=== PATIENT | female | born 1995 | race African-American/Black ===

== ENCOUNTER 2025-03-20 04:09 | Emergency (ER) | payer MEDICAID ==
[~2025-03-20] VITALS: Ht 175.3 cm; Wt 79.9 kg
[~2025-03-20 04:09] MED LIST: PREN-96 PO
[2025-03-20] MEDS ORDERED: ACET500T58 PO (05:03)
--- NOTE | 2025-03-20 05:04 | ED.PDOC ---
History of Present Illness HPI Comments 29-year-old female presents to ER with complaints of body aches x1 day. Patient reports that she has been experiencing intermittent body aches, sinus congestion and intermittent frontal headache x1 day. She rates her current pain a 9/10. States that she last took Tylenol for symptoms yesterday with slight relief. Patient also reports that she currently is 32 weeks , and has been following up with her OBGYN as directed, denying any known complications with current and presents to ER ambulatory on arrival, with steady gait in no distress. 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 History Family History Family History: Unknown Social History Smoker: Non-Smoker Alcohol: Denies ETOH Use Drugs: Denies Drug Use Lives In: Home Constitutional: See HPI EENTM: See HPI Respiratory: No Symptoms Reported Cardiovascular: No Symptoms Reported Gastrointestinal: No Symptoms Reported Genitourinary: See HPI Neurological: See HPI Musculoskeletal: No Symptoms Reported Integumentary: No Symptoms Reported Allergic/Immunocompromised: others (DENIES) Hematologic/Lymphatic: No Symptoms Reported Endocrine: No Symptoms Reported Psychiatric: No symptoms Reported Physical Exam General Appearance: No Apparent Distress, Normal HEENT: Normal ENT Inspection, PERRL/EOMI, Pharynx Normal, TMs Normal Neck: Full Range of Motion, Non-Tender, Normal Respiratory: Chest Non-Tender, Lungs Clear, No Accessory Muscle Use, No Respiratory Distress, Normal Breath Sounds Cardiovascular: No Murmur, No Gallop, Regular Rate/Rhythm Breast Exam: Deferred Gastrointestinal: Non Tender (NO TTP TO ABDOMEN/PELVIC REGION NOTED), No Pulsatile Mass, Soft Genitalia: Deferred Pelvic: Deferred Rectal: Deferred Extremities: Normal capillary refill, Normal range of motion Neurologic: Alert, inspector golf ball II-XII nml as Tested, No Motor Deficits, Normal Affect, Normal Mood, No Sensory Deficits Cerebellar Function: Normal Reflexes: Normal Skin: Dry, Normal Color, Warm Lymphatic: No Adenopathy Was a procedure done? Was a procedure done?: No Sedation Sedation?: No Fever Differential Dx Differential Diagnosis: Pneumonia, Sepsis, Other (COVID-19, INFLUENZA) X-Ray, Labs, Meds, VS Vital Signs Date Time Temp Pulse Resp B/P (MAP) Pulse Ox O2 Delivery O2 Flow Rate FiO2 03/20/25 06:03 99.4 86 16 101/58 (72) 98 99.4 03/20/25 06:03 86 16 98 Room Air 03/20/25 05:20 98.9 110 19 119/61 (80) 95 98.9 03/20/25 04:15 98.9 110 19 119/61 (80) 95 98.9 Lab Test 03/20/25 04:50 03/20/25 04:36 Range/Units Urine Color Colorless Yellow Urine Clarity Clear Clear Urine pH 5.5 5.0-9.0 Urine Specific [place] 1.010 1.001-1.035 Urine Protein Negative Negative Urine Ketones Negative Negative Urine Blood Negative Negative /uL Urine Nitrite Negative Negative Urine Bilirubin Negative Negative Urine Urobilinogen Normal Negative mg/dL Urine Leukocyte Esterase 2+ Negative /uL Urine RBC 1 0 - 4 /hpf Urine Microscopic WBC 3 0-5 /HPF Urine Squamous Epithelial Cells Few <5 /hpf Urine Bacteria Few H None Seen /hpf Urine Hyaline Casts Few 0 - 2 /lpf Urine Glucose Normal Normal mg/dL Influenza Type A Antigen Negative Negative Influenza Type B Antigen Negative Negative SARS-CoV-2 Antigen (Rapid) Negative NEGATIVE HEP-LOCK IV ORDERED NS 1 L IV ORDERED TYLENOL 650 MG P.O. ORDERED ROCEPHIN 1 G IV ORDERED URINE LEUKOCYTE ESTERASE 2+, URINE BLOOD NEGATIVE, URINE NITRITES NEGATIVE SWAB RESULTS REVIEWED - NEGATIVE PATIENT HAD IMPROVEMENT IN SYMPTOMS, DENIED ANY PAIN AND IN NO DISTRESS PRIOR TO DISCHARGE ADVISED TO DRINK PLENTY OF FLUIDS ADVISED TO FOLLOW UP WITH PCP AND OBGYN IN 1-2 DAYS PATIENT VERBALIZED UNDERSTANDING AND AGREEABLE WITH CURRENT PLAN OF CARE ADVISED TO RETURN TO ER IMMEDIATELY IF SYMPTOMS WORSEN Time of 1ST Reevaluation: 05:02 Reevaluation 1ST: N/A Patient Education/Counseling: Diagnosis, Treatment, Prognosis, Need For Follow Up Family Education/Counseling: No Family Present Departure 1 Departure Time of Disposition: 05:32 Impression: Primary Impression: UTI (urinary tract infection) Qualified Codes: N30.00 - Acute cystitis without hematuria Additional Impressions: Viral sinusitis Third trimester Disposition: HOME / SELF CARE / HOMELESS Condition: Stable e-Prescriptions Cephalexin Monohydrate (Cephalexin) 500 Mg Cap 500 MG PO QID for 7 Days, #28 CAP 0 Refills Prov: ZI GRIMES 03/20/25 Acetaminophen (Acetaminophen) 500 Mg Tab 500 MG PO Q4HPRN, #30 TAB 0 Refills Prov: ZI GRIMES 03/20/25 Discharged With: Self Critical Care Note Critical Care Time?: No Stability Stability form required: No Heart Score Heart Score: Heart Score Response (Comments) Value History N/A 0 EKG N/A 0 Age N/A 0 Risk Factors N/A 0 Troponin N/A 0 Total 0 ZI GRIMES March 20, 2025 05:04
[2025-03-20] MEDS: ACETAMINOPHEN 325 MG TAB PO ONE (05:09)
[2025-03-20] MEDS: SODIUM CHLORIDE 0.9% 1,000 ML IV ONE (05:09)
[2025-03-20 05:32] LABS: Urine Bacteria FEW /hpf (None Seen); Urine Blood Negative /uL (Negative); Urine Clarity Clear (Clear); Urine Color Colorless (Yellow); Urine Hyaline Cast FEW /lpf (0 - 2); Urine Protein, UAD Negative (Negative); Urine Squamous Epithelial Cell FEW /hpf (<5); Urine Urobilinogen Normal (Negative); Urine WBC 3 /HPF (0-5); Urine pH 5.5 (5.0-9.0)
[2025-03-20] MEDS ORDERED: CEPH500C PO (05:36)
[2025-03-20] MEDS: cefTRIAXone 1GM/50ML D5W 50 ML IV ONE (05:49)
[2025-03-20 05:54] LABS: COVID19 ANTIGEN SOFIA FIA NEGATIVE (NEGATIVE); Rapid Influenza A Negative (Negative); Rapid Influenza B Negative (Negative)
[2025-03-20 06:03] VITALS: BP 101/58; PULSE 86; RESP 16; TEMP 99.4; O2SAT 98
== END 2025-03-20 06:28 | disposition home or self-care (01) ==
LOC: ER 04:09
DX: O23.43 Unspecified infection of urinary tract in pregnancy, third trimester (principal); N39.0 Urinary tract infection, site not specified; O99.513 Diseases of the respiratory system complicating pregnancy, third trimester; J32.9 Chronic sinusitis, unspecified; Z20.822 Contact with and (suspected) exposure to COVID-19; Z3A.32 32 weeks gestation of pregnancy
CPT/HCPCS: 36415; 81001; 87426; 87804; 96361; 96365; 99284; J0696; J7030